=== PATIENT | male | born 1955 | race Caucasian/White ===

== ENCOUNTER 2021-10-11 19:49 | Inpatient (IN) | payer OTHER ==
[~2021-10-11] VITALS: Ht 195.6 cm; Wt 164.0 kg
[2021-10-11] MEDS ORDERED: ALBUTEROL SULF 2.5 MG/0.5ML(0.5%) NEB SOLN ONE (19:55)
[2021-10-11] MEDS ORDERED: IPRATROPIUM BROM 0.5 MG/2.5ML INH SOL ONE (19:55)
[2021-10-11] MEDS ORDERED: IPRATROPIUM BROM 0.5 MG/2.5ML INH SOL NEB ONE (20:00)
[2021-10-11] MEDS ORDERED: ASPirin 325 MG TAB PO ONE (20:00)
[2021-10-11] MEDS ORDERED: methylPREDNISolone SOD SUCC 125 MG/2 ML VL IV ONE (20:00)
[2021-10-11] MEDS ORDERED: ALBUTEROL SULF 2.5 MG/0.5ML(0.5%) NEB SOLN NEB ONE (20:00)
[2021-10-11] MEDS ORDERED: ACETAMINOPHEN 325 MG TAB PO ONE (20:00)
[2021-10-11 20:22] LABS: Hematocrit 36.7 % (41.0-53.0); Hemoglobin 11.7 g/dL (13.5-17.5); Mean Corpuscular Hemoglobin 28.2 pg (28.0-32.0); Mean Corpuscular Volume 88.1 fL (80.0-100.0); Red Blood Cells 4.17 10^6/uL (4.5-5.90); Red Cell Distribution Width 18.3 % (11.8-14.3); White Blood Cell 10.2 10^3/uL (4.4-10.8)
[2021-10-11 20:29] LABS: Basophils % (manual) 0 (0.0-2.0); Blast Cells 0; Metamyelocytes % 0; Myelocytes % 0; Promyelocytes % 0; Reactive Lymphocytes 0
[2021-10-11 20:38] LABS: Albumin 2.6 g/dL (3.4-5.0); BUN/Creatinine Ratio 11.7
[2021-10-11 20:45] LABS: Bilirubin, Total 1.3 mg/dL (0.2-1.0); Total Protein 7.1 g/dL (6.4-8.2)
[2021-10-11] MEDS: MAGNESIUM SULFATE 1GM/100ML 100 ML IV SCH ×2 (20:50→23:11)
[2021-10-11 21:08] LABS: Band Neutrophils % (manual) 25; Eosinophils % (manual) 1 (0-7); Lymphocytes % (manual) 5 (10.0-50.0); Monocytes % (manual) 2 (0-12)
[2021-10-11 21:26] VITALS: BP 150/112
[2021-10-11] MEDS ORDERED: DexAMETHasone 4 MG TAB PO ONE (22:15)
[2021-10-11 23:11] LABS: Urine Bacteria NONE SEEN /hpf (None Seen); Urine Blood Negative /uL (Negative); Urine Mucus FEW (None Seen); Urine Specific Gravity 1.011 (1.001-1.035); Urine WBC 1 /hpf (0 - 3)
[2021-10-11] MEDS ORDERED: IOHEXOL 350 MG/ML 100ML IJ ONE (23:29)
[2021-10-12] MEDS ORDERED: SODIUM CHLORIDE 0.9% 2,000 ML IV ONE (02:45)
[2021-10-12 05:45] VITALS: BP 100/70
[2021-10-12] MEDS ORDERED: ACETAMINOPHEN 500 MG TAB PO PRN (06:30)
[2021-10-12] MEDS ORDERED: REMDESIVIR PER PHARMACY 0 ML IV SCH (06:30)
[2021-10-12] MEDS ORDERED: ONDANSETRON HCL 4 MG/2 ML VIAL IV PRN (06:30)
[2021-10-12] MEDS ORDERED: DEXTROSE (50%) 50ML SYRG IV PRN (06:30)
[2021-10-12] MEDS ORDERED: DOCUSATE SOD 100 MG CAP PO PRN (06:30)
[2021-10-12] MEDS ORDERED: ASPirin 81 mg TAB PO ONE (06:45)
[2021-10-12] MEDS ORDERED: ENOXAPARIN SOD 100 MG/1 ML SYRINGE SC ONE (06:45)
[2021-10-12] MEDS ORDERED: CLOPIDOGREL 300 MG TAB PO ONE (06:45)
[2021-10-12] MEDS: ACCU-CHEK COMFORT CURVE STRIP VI SCH ×4 (07:00→22:00)
[2021-10-12] MEDS: InsuLIN REG 1unit/0.01ml Soln (100units/ml) SC SCH ×4 (07:00→23:27)
[2021-10-12 07:18] LABS: Basophils # (auto) 0 10 ^3/uL (0-0.2); Basophils % (auto) 0.1 % (0.0-2.0); Eosinophils # (auto) 0 10 ^3/uL (0-0.8); Hematocrit 33.5 % (41.0-53.0); Hemoglobin 10.5 g/dL (13.5-17.5); Lymphocytes # (auto) 0.3 10 ^3/uL (0.4-5.4); Lymphocytes % (auto) 2.3 % (10.0-50.0); Mean Corpuscular Hemoglobin 27.7 pg (28.0-32.0); Mean Corpuscular Hgb Conc. 31.4 g/dL (32.0-36.0); Mean Corpuscular Volume 88.3 fL (80.0-100.0); Monocytes # (auto) 0.3 10 ^3/uL (0-1.3); Monocytes % (auto) 2.1 % (0.0-12.0); Neutrophils # (auto) 12.9 10 ^3/uL (1.6-8.6); Neutrophils % (auto) 95.5 % (37.0-80.0); White Blood Cell 13.4 10^3/uL (4.4-10.8)
[2021-10-12 07:27] LABS: Albumin 2.3 g/dL (3.4-5.0); BUN/Creatinine Ratio 12.5; Magnesium 2.5 mg/dL (1.6-2.6); Potassium 4.3 mmol/L (3.5-5.1)
[2021-10-12 07:36] LABS: Bilirubin, Total 1.8 mg/dL (0.2-1.0); CRP High Sensitivity 10.7 mg/dL (< 0.3); Total Protein 6.6 g/dL (6.4-8.2)
[2021-10-12 07:38] LABS: Thyroid Stimulating Hormone 0.73 uIU/mL (0.358-3.74)
[2021-10-12 10:21] LABS: Cholesterol 101 mg/dL (< 200); Triglycerides 76 mg/dL (< 150)
[2021-10-12 10:23] LABS: HDL Cholesterol 34 mg/dL (40-59)
[2021-10-12] MEDS: CHOLECALCIFEROL (VITD3) 2,000 UNIT CAP/TAB PO SCH (10:57)
[2021-10-12] MEDS: ASPirin 81 mg TAB PO SCH (10:58)
[2021-10-12] MEDS: ZINC SULFATE 220mg CAP or TAB PO SCH (10:58)
[2021-10-12] MEDS: ASCORBIC ACID 1,000 MG TAB PO SCH (10:58)
[2021-10-12] MEDS: DexAMETHasone SOD PHOS 10MG/1ML VIAL INJ IV SCH (10:59)
[2021-10-12] MEDS: ENOXAPARIN SOD 60 MG/0.6 ML SYRINGE SC SCH ×2 (10:59→21:36)
[2021-10-12] MEDS ORDERED: REMDESIVIR 200 MG in NS 210ml LOADING DOSE ADULT IV ONE (15:00)
[2021-10-12 17:13] VITALS: BP 113/61
[2021-10-12] MEDS: ALBUTEROL SULF HFA 90MCG INH 200DOSE IN PRN (18:14)
[2021-10-12] MEDS: ATORVASTATIN 20 MG TAB PO SCH (21:36)
[2021-10-12 21:54] VITALS: BP 115/54
[2021-10-13 06:31] LABS: Albumin 2.2 g/dL (3.4-5.0); Potassium 4.5 mmol/L (3.5-5.1)
[2021-10-13 06:33] LABS: BUN/Creatinine Ratio 23.3
[2021-10-13 06:38] LABS: Bilirubin, Total 0.7 mg/dL (0.2-1.0); Total Protein 6.7 g/dL (6.4-8.2)
[2021-10-13 06:39] LABS: Basophils # (auto) 0 10 ^3/uL (0-0.2); Basophils % (auto) 0.1 % (0.0-2.0); Eosinophils # (auto) 0 10 ^3/uL (0-0.8); Hematocrit 31.9 % (41.0-53.0); Lymphocytes # (auto) 0.4 10 ^3/uL (0.4-5.4); Lymphocytes % (auto) 3.6 % (10.0-50.0); Mean Corpuscular Hemoglobin 27.7 pg (28.0-32.0); Mean Corpuscular Hgb Conc. 31.3 g/dL (32.0-36.0); Mean Corpuscular Volume 88.4 fL (80.0-100.0); Monocytes # (auto) 0.6 10 ^3/uL (0-1.3); Monocytes % (auto) 4.6 % (0.0-12.0); Neutrophils # (auto) 11.1 10 ^3/uL (1.6-8.6); Neutrophils % (auto) 91.7 % (37.0-80.0); Nucleated Red Blood Cells % 0.1 %; Red Blood Cells 3.61 10^6/uL (4.5-5.90); Red Cell Distribution Width 18.3 % (11.8-14.3); White Blood Cell 12.1 10^3/uL (4.4-10.8)
[2021-10-13] MEDS: ACCU-CHEK COMFORT CURVE STRIP VI SCH ×4 (06:41→21:39)
[2021-10-13] MEDS: InsuLIN REG 1unit/0.01ml Soln (100units/ml) SC SCH ×4 (06:41→21:38)
[2021-10-13 08:00] VITALS: BP 122/70
[2021-10-13 08:13] VITALS: BP 122/70
[2021-10-13] MEDS: ASCORBIC ACID 1,000 MG TAB PO SCH (10:07)
[2021-10-13] MEDS: CLOPIDOGREL BISULFATE 75 MG TAB PO SCH (10:07)
[2021-10-13] MEDS: DexAMETHasone SOD PHOS 10MG/1ML VIAL INJ IV SCH (10:07)
[2021-10-13] MEDS: ENOXAPARIN SOD 60 MG/0.6 ML SYRINGE SC SCH ×2 (10:07→22:15)
[2021-10-13] MEDS: CHOLECALCIFEROL (VITD3) 2,000 UNIT CAP/TAB PO SCH (10:08)
[2021-10-13] MEDS: ZINC SULFATE 220mg CAP or TAB PO SCH (10:08)
[2021-10-13] MEDS: ASPirin 81 mg TAB PO SCH (10:08)
[2021-10-13 11:30] VITALS: BP 127/56
[2021-10-13 15:44] VITALS: BP 144/49
[2021-10-13] MEDS: REMDESIVIR 100mg 100 MG in SODIUM CHL 0.9% 230 ML IV SCH (15:44)
[2021-10-13 22:00] VITALS: BP 133/80
[2021-10-13] MEDS: ATORVASTATIN 20 MG TAB PO SCH (22:15)
[2021-10-14 05:00] VITALS: BP 108/57
[2021-10-14 05:56] LABS: Hemoglobin 10.7 g/dL (13.5-17.5); Mean Corpuscular Hemoglobin 28.8 pg (28.0-32.0); Mean Corpuscular Hgb Conc. 32.3 g/dL (32.0-36.0); Mean Corpuscular Volume 89.1 fL (80.0-100.0); Red Cell Distribution Width 17.9 % (11.8-14.3); White Blood Cell 13.3 10^3/uL (4.4-10.8)
[2021-10-14 06:05] LABS: Basophils % (manual) 0 (0.0-2.0); Blast Cells 0; Eosinophils % (manual) 0 (0-7); Promyelocytes % 0; Reactive Lymphocytes 0
[2021-10-14] MEDS: InsuLIN REG 1unit/0.01ml Soln (100units/ml) SC SCH ×4 (06:08→22:02)
[2021-10-14] MEDS: ACCU-CHEK COMFORT CURVE STRIP VI SCH ×4 (06:13→21:55)
[2021-10-14 06:14] LABS: Albumin 2.2 g/dL (3.4-5.0); BUN/Creatinine Ratio 22.9; Calcium 8.2 mg/dL (8.5-10.1); Potassium 4.8 mmol/L (3.5-5.1)
[2021-10-14 06:17] LABS: Bilirubin, Total 1.4 mg/dL (0.2-1.0)
[2021-10-14 06:47] LABS: Band Neutrophils % (manual) 24; Lymphocytes % (manual) 2 (10.0-50.0); Metamyelocytes % 1; Monocytes % (manual) 4 (0-12); Myelocytes % 1
[2021-10-14] MEDS: ALBUTEROL SULF HFA 90MCG INH 200DOSE IN PRN (07:00)
[2021-10-14 09:00] VITALS: BP 130/72
[2021-10-14] MEDS ORDERED: LORazepam 0.5 MG TAB PO ONE (09:45)
[2021-10-14] MEDS: ASCORBIC ACID 1,000 MG TAB PO SCH (09:59)
[2021-10-14] MEDS: CHOLECALCIFEROL (VITD3) 2,000 UNIT CAP/TAB PO SCH (09:59)
[2021-10-14] MEDS: CLOPIDOGREL BISULFATE 75 MG TAB PO SCH (09:59)
[2021-10-14] MEDS: ASPirin 81 mg TAB PO SCH (09:59)
[2021-10-14] MEDS: ENOXAPARIN SOD 60 MG/0.6 ML SYRINGE SC SCH ×2 (09:59→21:55)
[2021-10-14] MEDS ORDERED: FUROSEMIDE 40 MG/4 ML VIAL IV SCH (10:00)
[2021-10-14] MEDS: DexAMETHasone SOD PHOS 10MG/1ML VIAL INJ IV SCH (10:00)
[2021-10-14] MEDS ORDERED: AZITHROMYCIN 500MG/ 250ML 250 ML IV SCH (10:00)
[2021-10-14] MEDS: ZINC SULFATE 220mg CAP or TAB PO SCH (10:09)
[2021-10-14 13:00] VITALS: BP 127/55
[2021-10-14] MEDS: REMDESIVIR 100mg 100 MG in SODIUM CHL 0.9% 230 ML IV SCH (15:56)
[2021-10-14 17:00] VITALS: BP 114/50
[2021-10-14] MEDS: ATORVASTATIN 20 MG TAB PO SCH (21:55)
[2021-10-14 22:00] VITALS: BP 102/61
[2021-10-14 22:00] LABS: LDL Cholesterol 49 mg/dL (< 100)
[2021-10-15] MEDS ORDERED: cefTRIAXone 1GM/50ML D5W 50 ML IV SCH (09:00)
== END 2021-10-15 04:26 | disposition short-term general hospital (02) | DRG 177 ==
LOC: EDBD 19:49 → ER 19:52 → TELE 10-12 06:21 → TELE-E-ADS 10-12 08:50 → TELE-EAST 10-12 16:50
PROVIDERS: ADMIT Internal Medicine; ATTEND Internal Medicine
PROC: 5A09357 Assistance with Respiratory Ventilation, Less than 24 Consecutive Hours, Continuous Positive Airway Pressure (ICD-10-PCS; principal; 2021-10-11)
PROC: XW033E5 Introduction of Remdesivir Anti-infective into Peripheral Vein, Percutaneous Approach, New Technology Group 5 (ICD-10-PCS; 2021-10-12)
DX: U07.1 COVID-19 (principal); J96.01 Acute respiratory failure with hypoxia; I21.4 Non-ST elevation (NSTEMI) myocardial infarction; J12.82 Pneumonia due to coronavirus disease 2019; I50.21 Acute systolic (congestive) heart failure; E66.2 Morbid (severe) obesity with alveolar hypoventilation; N17.9 Acute kidney failure, unspecified; L03.113 Cellulitis of right upper limb; Z68.41 Body mass index [BMI] 40.0-44.9, adult; I27.21 Secondary pulmonary arterial hypertension; D63.8 Anemia in other chronic diseases classified elsewhere; I27.20 Pulmonary hypertension, unspecified; E11.9 Type 2 diabetes mellitus without complications; I11.0 Hypertensive heart disease with heart failure; J45.909 Unspecified asthma, uncomplicated; Z78.9 Other specified health status; Z79.899 Other long term (current) drug therapy
CPT/HCPCS: 36415; 36600; 70450; 71045; 71275; 80053; 80061; 81001; 82728; 82805; 82962; 83036; 83605; 83615; 83735; 83880; 84443; 84484; 85007; 85025; 85027; 85379; 86141; 87040; 87077; 87186; 87426; 87804; 93005; 93306; 93970; 94640; 94644; 94660; 96365; 96375; 99291; G0378; J1100; J1815

== ENCOUNTER 2021-11-18 11:45 | Inpatient (IN) | payer OTHER ==
[~2021-11-18] VITALS: Ht 167.6 cm; Wt 96.0 kg
[2021-11-18 13:20] LABS: Basophils # (auto) 0 10 ^3/uL (0-0.2); Basophils % (auto) 0.9 % (0.0-2.0); Eosinophils # (auto) 0.1 10 ^3/uL (0-0.8); Eosinophils % (auto) 1.9 % (0.0-7.0); Hemoglobin 9.6 g/dL (13.5-17.5); Lymphocytes # (auto) 0.5 10 ^3/uL (0.4-5.4); Lymphocytes % (auto) 10.8 % (10.0-50.0); Mean Corpuscular Hemoglobin 27.6 pg (28.0-32.0); Mean Corpuscular Hgb Conc. 32.1 g/dL (32.0-36.0); Monocytes # (auto) 0.4 10 ^3/uL (0-1.3); Neutrophils # (auto) 3.3 10 ^3/uL (1.6-8.6); Neutrophils % (auto) 76.4 % (37.0-80.0); Nucleated Red Blood Cells % 0.2 %; Red Blood Cells 3.49 10^6/uL (4.5-5.90); Red Cell Distribution Width 18.7 % (11.8-14.3); White Blood Cell 4.3 10^3/uL (4.4-10.8)
[2021-11-18 13:53] LABS: Albumin 1.9 g/dL (3.4-5.0); BUN/Creatinine Ratio 9.6; Calcium 7.6 mg/dL (8.5-10.1); Potassium 3.8 mmol/L (3.5-5.1)
[2021-11-18 13:58] LABS: Total Protein 5.9 g/dL (6.4-8.2)
[2021-11-18] MEDS ORDERED: ASPirin 325 MG TAB PO ONE (14:15)
[2021-11-18] MEDS ORDERED: ACETAMINOPHEN 500 MG TAB PO PRN (16:45)
[2021-11-18] MEDS ORDERED: FUROSEMIDE 100 MG/10ML VIAL IV ONE (16:45)
[2021-11-18] MEDS ORDERED: REMDESIVIR PER PHARMACY 0 ML IV SCH (16:45)
[2021-11-18] MEDS ORDERED: DEXTROSE (50%) 50ML SYRG IV PRN (16:45)
[2021-11-18] MEDS: InsuLIN REG 1unit/0.01ml Soln (100units/ml) SC SCH ×2 (18:06→21:35)
[2021-11-18] MEDS: ACCU-CHEK COMFORT CURVE STRIP VI SCH ×2 (18:06→21:36)
[2021-11-18 18:13] LABS: Basophils # (auto) 0 10 ^3/uL (0-0.2); Basophils % (auto) 0.6 % (0.0-2.0); Eosinophils # (auto) 0.1 10 ^3/uL (0-0.8); Hematocrit 30.2 % (41.0-53.0); Hemoglobin 9.7 g/dL (13.5-17.5); Lymphocytes # (auto) 0.6 10 ^3/uL (0.4-5.4); Lymphocytes % (auto) 16.1 % (10.0-50.0); Mean Corpuscular Hemoglobin 27.5 pg (28.0-32.0); Mean Corpuscular Hgb Conc. 32.1 g/dL (32.0-36.0); Mean Corpuscular Volume 85.6 fL (80.0-100.0); Monocytes # (auto) 0.5 10 ^3/uL (0-1.3); Monocytes % (auto) 11.5 % (0.0-12.0); Neutrophils # (auto) 2.8 10 ^3/uL (1.6-8.6); Neutrophils % (auto) 69.8 % (37.0-80.0); Nucleated Red Blood Cells % 0.4 %; Red Blood Cells 3.52 10^6/uL (4.5-5.90); Red Cell Distribution Width 19.3 % (11.8-14.3)
[2021-11-18 18:30] LABS: Albumin 1.9 g/dL (3.4-5.0); BUN/Creatinine Ratio 11.4; Calcium 7.7 mg/dL (8.5-10.1); Magnesium 1.9 mg/dL (1.6-2.6); Potassium 3.8 mmol/L (3.5-5.1)
[2021-11-18 18:39] LABS: Bilirubin, Total 0.9 mg/dL (0.2-1.0); CRP High Sensitivity 6.36 mg/dL (< 0.3); Total Protein 5.8 g/dL (6.4-8.2)
[2021-11-18 19:04] VITALS: BP 105/36
[2021-11-18 19:10] LABS: Urine Bacteria NONE SEEN /hpf (None Seen); Urine Blood Negative /uL (Negative); Urine Mucus FEW (None Seen); Urine Specific Gravity 1.008 (1.001-1.035); Urine WBC 1 /hpf (0 - 3)
[2021-11-18 19:28] LABS: Thyroid Stimulating Hormone 1.47 uIU/mL (0.358-3.74)
[2021-11-18] MEDS ORDERED: HEPARIN SODIUM (PORCINE) 5000 UNITS/ML 1ML VIAL IV ONE (19:30)
[2021-11-18] MEDS ORDERED: MORPHINE SULFATE INJECTION 2 MG/ML SYRG IV ONE (19:30)
[2021-11-18] MEDS ORDERED: REMDESIVIR 200 MG in NS 210ml LOADING DOSE ADULT IV ONE (20:00)
[2021-11-18 21:50] VITALS: BP 107/59
[2021-11-18] MEDS: BUDESONIDE (INHALATION) 180 MCG IH IN SCH (21:57)
[2021-11-18 22:00] VITALS: BP 112/50
[2021-11-18] MEDS ORDERED: ENOXAPARIN SOD 60 MG/0.6 ML SYRINGE SC SCH (22:00)
[2021-11-18 22:40] VITALS: BP 94/43
[2021-11-18] MEDS: ENOXAPARIN SOD 60 MG/0.6 ML SYRINGE SC SCH (23:16)
[2021-11-19] MEDS ORDERED: TRAZ50TA2 PO (03:09)
[2021-11-19] MEDS ORDERED: ALBU2TAB4 PO (03:09)
[2021-11-19] MEDS ORDERED: PROP60CA34 PO (03:09)
[2021-11-19] MEDS ORDERED: CICL160A2 IN (03:09)
[2021-11-19] MEDS ORDERED: FOLI1TAB6 PO (03:09)
[2021-11-19] MEDS ORDERED: DIPH25CA29 PO (03:09)
[2021-11-19] MEDS ORDERED: BUDE0.253 IN (03:09)
[2021-11-19] MEDS ORDERED: PANT40TA2 PO (03:09)
[2021-11-19] MEDS ORDERED: SIME80CH6 PO (03:09)
[2021-11-19 05:00] VITALS: BP 111/73
[2021-11-19 05:30] LABS: Albumin 1.9 g/dL (3.4-5.0); Potassium 3.6 mmol/L (3.5-5.1)
[2021-11-19 05:34] LABS: BUN/Creatinine Ratio 10.3; Calcium 7.9 mg/dL (8.5-10.1)
[2021-11-19 05:42] LABS: Total Protein 5.7 g/dL (6.4-8.2)
[2021-11-19] MEDS: ACCU-CHEK COMFORT CURVE STRIP VI SCH ×4 (06:22→22:36)
[2021-11-19] MEDS: InsuLIN REG 1unit/0.01ml Soln (100units/ml) SC SCH ×4 (06:22→22:00)
[2021-11-19] MEDS: ENOXAPARIN SOD 60 MG/0.6 ML SYRINGE SC SCH (08:53)
[2021-11-19] MEDS: DexAMETHasone SOD PHOS 10MG/1ML VIAL INJ IV SCH (08:54)
[2021-11-19] MEDS: AZITHROMYCIN 500MG/ 250ML 250 ML IV SCH (08:54)
[2021-11-19 09:00] VITALS: BP 127/61
[2021-11-19] MEDS: BUDESONIDE (INHALATION) 180 MCG IH IN SCH ×2 (09:43→22:00)
[2021-11-19] MEDS: ALBUTEROL SULF HFA 90MCG INH 200DOSE IN PRN ×2 (09:43→22:34)
[2021-11-19] MEDS ORDERED: ENOXAPARIN SOD 40 MG/0.4 ML SYRINGE SC SCH (10:00)
[2021-11-19] MEDS ORDERED: FUROSEMIDE 40 MG/4 ML VIAL IV SCH (10:00)
[2021-11-19] MEDS ORDERED: PANTOPRAZOLE 40 MG TAB PO ONE (11:30)
[2021-11-19] MEDS: ZINC SULFATE 220mg CAP or TAB PO SCH (11:50)
[2021-11-19] MEDS: CHOLECALCIFEROL (VITD3) 2,000 UNIT CAP/TAB PO SCH (11:50)
[2021-11-19] MEDS: ASCORBIC ACID 1,000 MG TAB PO SCH (11:50)
[2021-11-19 13:00] VITALS: BP 117/51
[2021-11-19] MEDS: REMDESIVIR 100mg 100 MG in SODIUM CHL 0.9% 230 ML IV SCH (15:34)
[2021-11-19 22:00] VITALS: BP 117/55
[2021-11-19] MEDS: ENOXAPARIN SOD 40 MG/0.4 ML SYRINGE SC SCH (22:36)
[2021-11-19] MEDS ORDERED: TEMAZEPAM 15 MG CAP PO ONE (23:00)
[2021-11-20 05:00] VITALS: BP 127/62
[2021-11-20 05:53] LABS: Basophils # (auto) 0 10 ^3/uL (0-0.2); Basophils % (auto) 0.3 % (0.0-2.0); Eosinophils # (auto) 0 10 ^3/uL (0-0.8); Eosinophils % (auto) 0.3 % (0.0-7.0); Hematocrit 28.6 % (41.0-53.0); Hemoglobin 9.4 g/dL (13.5-17.5); Lymphocytes # (auto) 0.6 10 ^3/uL (0.4-5.4); Lymphocytes % (auto) 18.7 % (10.0-50.0); Mean Corpuscular Hemoglobin 28.1 pg (28.0-32.0); Mean Corpuscular Hgb Conc. 32.7 g/dL (32.0-36.0); Mean Corpuscular Volume 85.8 fL (80.0-100.0); Monocytes # (auto) 0.3 10 ^3/uL (0-1.3); Monocytes % (auto) 9.1 % (0.0-12.0); Neutrophils # (auto) 2.4 10 ^3/uL (1.6-8.6); Neutrophils % (auto) 71.6 % (37.0-80.0); Red Blood Cells 3.33 10^6/uL (4.5-5.90); Red Cell Distribution Width 18.6 % (11.8-14.3); White Blood Cell 3.4 10^3/uL (4.4-10.8)
[2021-11-20] MEDS: InsuLIN REG 1unit/0.01ml Soln (100units/ml) SC SCH ×4 (06:19→21:50)
[2021-11-20] MEDS: ACCU-CHEK COMFORT CURVE STRIP VI SCH ×4 (06:19→21:50)
[2021-11-20 06:24] LABS: Potassium 3.7 mmol/L (3.5-5.1)
[2021-11-20 06:45] LABS: BUN/Creatinine Ratio 16.1
[2021-11-20] MEDS: ALBUTEROL SULF HFA 90MCG INH 200DOSE IN PRN ×2 (06:50→19:41)
[2021-11-20] MEDS: BUDESONIDE (INHALATION) 180 MCG IH IN SCH ×2 (06:51→19:41)
[2021-11-20 09:00] VITALS: BP 123/63
[2021-11-20] MEDS ORDERED: FUROSEMIDE 20 MG TAB PO ONE (10:30)
[2021-11-20] MEDS ORDERED: POTASSIUM CHL 20 Meq TABLET PO ONE (10:30)
[2021-11-20] MEDS ORDERED: ceFAZolin 1GM/50ML 50 ML IV ONE (10:30)
[2021-11-20] MEDS: DexAMETHasone SOD PHOS 10MG/1ML VIAL INJ IV SCH (11:40)
[2021-11-20] MEDS: ZINC SULFATE 220mg CAP or TAB PO SCH (11:41)
[2021-11-20] MEDS: ASCORBIC ACID 1,000 MG TAB PO SCH (11:41)
[2021-11-20] MEDS: AZITHROMYCIN 500MG/ 250ML 250 ML IV SCH (11:41)
[2021-11-20] MEDS: CHOLECALCIFEROL (VITD3) 2,000 UNIT CAP/TAB PO SCH (11:41)
[2021-11-20] MEDS: PANTOPRAZOLE 40 MG TAB PO SCH (11:41)
[2021-11-20] MEDS: ENOXAPARIN SOD 40 MG/0.4 ML SYRINGE SC SCH ×2 (11:42→21:57)
[2021-11-20 12:46] VITALS: BP 134/58
[2021-11-20 16:36] VITALS: BP 100/55
[2021-11-20] MEDS: REMDESIVIR 100mg 100 MG in SODIUM CHL 0.9% 230 ML IV SCH (17:29)
[2021-11-20] MEDS: ceFAZolin 1GM/50ML 50 ML IV SCH (18:31)
[2021-11-20 22:00] VITALS: BP 108/43
[2021-11-20] MEDS ORDERED: TEMAZEPAM 15 MG CAP PO ONE (23:30)
[2021-11-21] MEDS: ceFAZolin 1GM/50ML 50 ML IV SCH ×3 (02:05→18:26)
[2021-11-21 05:00] VITALS: BP 110/59
[2021-11-21] MEDS: InsuLIN REG 1unit/0.01ml Soln (100units/ml) SC SCH ×4 (06:23→22:00)
[2021-11-21] MEDS: ACCU-CHEK COMFORT CURVE STRIP VI SCH ×4 (06:23→22:00)
[2021-11-21] MEDS: ALBUTEROL SULF HFA 90MCG INH 200DOSE IN PRN ×2 (06:34→21:35)
[2021-11-21] MEDS: DexAMETHasone SOD PHOS 10MG/1ML VIAL INJ IV SCH (08:40)
[2021-11-21] MEDS: PANTOPRAZOLE 40 MG TAB PO SCH (08:41)
[2021-11-21] MEDS: POTASSIUM CHL 20 Meq TABLET PO SCH (08:41)
[2021-11-21] MEDS: ENOXAPARIN SOD 40 MG/0.4 ML SYRINGE SC SCH ×2 (08:41→23:58)
[2021-11-21] MEDS: ASCORBIC ACID 1,000 MG TAB PO SCH (08:41)
[2021-11-21] MEDS: ZINC SULFATE 220mg CAP or TAB PO SCH (08:41)
[2021-11-21] MEDS: CHOLECALCIFEROL (VITD3) 2,000 UNIT CAP/TAB PO SCH (08:41)
[2021-11-21] MEDS: FUROSEMIDE 20 MG TAB PO SCH (08:46)
[2021-11-21 09:00] VITALS: BP 127/65
[2021-11-21] MEDS: BUDESONIDE (INHALATION) 180 MCG IH IN SCH ×2 (09:52→21:35)
[2021-11-21] MEDS: AZITHROMYCIN 500MG/ 250ML 250 ML IV SCH (10:40)
[2021-11-21 12:53] VITALS: BP 136/66
[2021-11-21] MEDS: REMDESIVIR 100mg 100 MG in SODIUM CHL 0.9% 230 ML IV SCH (15:18)
[2021-11-21 17:00] VITALS: BP 128/66
[2021-11-21 22:00] VITALS: BP 127/59
[2021-11-21] MEDS: traZODone HCL 50 MG TAB PO PRN (23:58)
[2021-11-22 00:57] VITALS: BP 118/53
[2021-11-22] MEDS: ceFAZolin 1GM/50ML 50 ML IV SCH ×3 (02:10→19:36)
[2021-11-22 05:00] VITALS: BP 130/57
[2021-11-22] MEDS: InsuLIN REG 1unit/0.01ml Soln (100units/ml) SC SCH ×4 (07:00→22:00)
[2021-11-22] MEDS: ACCU-CHEK COMFORT CURVE STRIP VI SCH ×3 (07:00→16:54)
[2021-11-22 08:49] VITALS: BP 124/64
[2021-11-22] MEDS: AZITHROMYCIN 500MG/ 250ML 250 ML IV SCH (09:13)
[2021-11-22] MEDS: DexAMETHasone SOD PHOS 10MG/1ML VIAL INJ IV SCH (09:13)
[2021-11-22] MEDS: ENOXAPARIN SOD 40 MG/0.4 ML SYRINGE SC SCH (09:14)
[2021-11-22] MEDS: ZINC SULFATE 220mg CAP or TAB PO SCH (09:14)
[2021-11-22] MEDS: CHOLECALCIFEROL (VITD3) 2,000 UNIT CAP/TAB PO SCH (09:14)
[2021-11-22] MEDS: ASCORBIC ACID 1,000 MG TAB PO SCH (09:14)
[2021-11-22] MEDS: PANTOPRAZOLE 40 MG TAB PO SCH (09:14)
[2021-11-22] MEDS: FUROSEMIDE 20 MG TAB PO SCH (09:15)
[2021-11-22] MEDS: POTASSIUM CHL 20 Meq TABLET PO SCH (09:15)
[2021-11-22] MEDS ORDERED: PROMETHAZINE W/CODEINE 5 ML ORAL SYRUP PO PRN (10:15)
[2021-11-22] MEDS: ALBUTEROL SULF HFA 90MCG INH 200DOSE IN PRN (10:18)
[2021-11-22] MEDS: BUDESONIDE (INHALATION) 180 MCG IH IN SCH ×2 (10:18→19:06)
[2021-11-22 11:14] LABS: Albumin 2.3 g/dL (3.4-5.0); Calcium 8.1 mg/dL (8.5-10.1); Potassium 3.7 mmol/L (3.5-5.1)
[2021-11-22 11:18] LABS: BUN/Creatinine Ratio 14.6; Bilirubin, Total 0.4 mg/dL (0.2-1.0); Total Protein 6.4 g/dL (6.4-8.2)
[2021-11-22] MEDS ORDERED: LACTULOSE 20Gm/30ML SOLN PO ONE (11:30)
[2021-11-22 13:00] VITALS: BP 122/59
[2021-11-22] MEDS: REMDESIVIR 100mg 100 MG in SODIUM CHL 0.9% 230 ML IV SCH (15:19)
[2021-11-22 17:31] VITALS: BP 137/63
[2021-11-22 21:55] VITALS: BP 136/70
[2021-11-22] MEDS ORDERED: traZODone HCL 50 MG TAB PO SCH (22:00)
[2021-11-23] MEDS: ENOXAPARIN SOD 40 MG/0.4 ML SYRINGE SC SCH ×3 (00:28→22:25)
[2021-11-23] MEDS: traZODone HCL 50 MG TAB PO PRN (00:28)
[2021-11-23] MEDS: ACCU-CHEK COMFORT CURVE STRIP VI SCH ×5 (00:28→22:25)
[2021-11-23] MEDS: ceFAZolin 1GM/50ML 50 ML IV SCH ×2 (02:21→10:49)
[2021-11-23 04:55] VITALS: BP 130/67
[2021-11-23] MEDS: InsuLIN REG 1unit/0.01ml Soln (100units/ml) SC SCH ×4 (06:37→22:00)
[2021-11-23 09:00] VITALS: BP 125/35
[2021-11-23] MEDS: ALBUTEROL SULF HFA 90MCG INH 200DOSE IN PRN ×2 (09:43→19:40)
[2021-11-23] MEDS: BUDESONIDE (INHALATION) 180 MCG IH IN SCH ×2 (09:43→19:40)
[2021-11-23] MEDS: DexAMETHasone SOD PHOS 10MG/1ML VIAL INJ IV SCH (10:49)
[2021-11-23] MEDS: AZITHROMYCIN 500MG/ 250ML 250 ML IV SCH (10:49)
[2021-11-23] MEDS: ZINC SULFATE 220mg CAP or TAB PO SCH (10:49)
[2021-11-23] MEDS: CHOLECALCIFEROL (VITD3) 2,000 UNIT CAP/TAB PO SCH (10:50)
[2021-11-23] MEDS: PANTOPRAZOLE 40 MG TAB PO SCH (10:50)
[2021-11-23] MEDS: POTASSIUM CHL 20 Meq TABLET PO SCH (10:50)
[2021-11-23] MEDS: ASCORBIC ACID 1,000 MG TAB PO SCH (10:50)
[2021-11-23] MEDS: FUROSEMIDE 20 MG TAB PO SCH (10:51)
[2021-11-23 12:54] VITALS: BP 116/49
[2021-11-23] MEDS: CEPHALEXIN 250 MG CAP PO SCH ×2 (14:54→22:25)
[2021-11-23 17:00] VITALS: BP 124/60
[2021-11-23 22:00] VITALS: BP 107/53
[2021-11-24 05:00] VITALS: BP 122/53
[2021-11-24] MEDS: CEPHALEXIN 250 MG CAP PO SCH ×3 (06:16→22:09)
[2021-11-24] MEDS: InsuLIN REG 1unit/0.01ml Soln (100units/ml) SC SCH ×4 (06:17→22:11)
[2021-11-24] MEDS: ACCU-CHEK COMFORT CURVE STRIP VI SCH ×4 (06:17→22:09)
[2021-11-24] MEDS: BUDESONIDE (INHALATION) 180 MCG IH IN SCH ×2 (07:30→18:44)
[2021-11-24] MEDS: ALBUTEROL SULF HFA 90MCG INH 200DOSE IN PRN ×2 (08:27→18:44)
[2021-11-24 08:51] VITALS: BP 139/58
[2021-11-24] MEDS: ZINC SULFATE 220mg CAP or TAB PO SCH (09:21)
[2021-11-24] MEDS: POTASSIUM CHL 20 Meq TABLET PO SCH (09:22)
[2021-11-24] MEDS: FUROSEMIDE 20 MG TAB PO SCH (09:22)
[2021-11-24] MEDS: DexAMETHasone 4 MG TAB PO SCH (09:22)
[2021-11-24] MEDS: ASCORBIC ACID 1,000 MG TAB PO SCH (09:23)
[2021-11-24] MEDS: CHOLECALCIFEROL (VITD3) 2,000 UNIT CAP/TAB PO SCH (09:23)
[2021-11-24] MEDS: ENOXAPARIN SOD 40 MG/0.4 ML SYRINGE SC SCH ×2 (09:23→22:09)
[2021-11-24] MEDS: PANTOPRAZOLE 40 MG TAB PO SCH (09:23)
[2021-11-24 13:00] VITALS: BP 137/75
[2021-11-24 17:27] VITALS: BP 146/76
[2021-11-24 21:22] VITALS: BP 123/67
[2021-11-24] MEDS: traZODone HCL 50 MG TAB PO PRN (22:10)
[2021-11-24 23:36] VITALS: BP 123/67
[2021-11-25] MEDS: ACCU-CHEK COMFORT CURVE STRIP VI SCH (06:15)
[2021-11-25] MEDS: CEPHALEXIN 250 MG CAP PO SCH ×3 (06:15→22:20)
[2021-11-25] MEDS: InsuLIN REG 1unit/0.01ml Soln (100units/ml) SC SCH (06:15)
[2021-11-25] MEDS: BUDESONIDE (INHALATION) 180 MCG IH IN SCH ×2 (06:33→21:40)
[2021-11-25 08:00] VITALS: BP 157/90
[2021-11-25 08:48] VITALS: BP 122/67
[2021-11-25] MEDS: ASCORBIC ACID 1,000 MG TAB PO SCH (10:07)
[2021-11-25] MEDS: PANTOPRAZOLE 40 MG TAB PO SCH (10:07)
[2021-11-25] MEDS: ZINC SULFATE 220mg CAP or TAB PO SCH (10:07)
[2021-11-25] MEDS: POTASSIUM CHL 20 Meq TABLET PO SCH (10:07)
[2021-11-25] MEDS: DexAMETHasone 4 MG TAB PO SCH (10:07)
[2021-11-25] MEDS: CHOLECALCIFEROL (VITD3) 2,000 UNIT CAP/TAB PO SCH (10:08)
[2021-11-25] MEDS: ENOXAPARIN SOD 40 MG/0.4 ML SYRINGE SC SCH ×2 (10:08→22:20)
[2021-11-25] MEDS: FUROSEMIDE 20 MG TAB PO SCH (10:09)
[2021-11-25 13:25] VITALS: BP 144/59
[2021-11-25 16:30] VITALS: BP 134/56
[2021-11-25 20:00] VITALS: BP 157/90
[2021-11-25] MEDS: ALBUTEROL SULF HFA 90MCG INH 200DOSE IN PRN (21:40)
[2021-11-25 22:00] VITALS: BP 144/70
[2021-11-25] MEDS: traZODone HCL 50 MG TAB PO PRN (23:07)
[2021-11-26 05:00] VITALS: BP 124/48
[2021-11-26] MEDS: CEPHALEXIN 250 MG CAP PO SCH ×3 (06:30→21:36)
[2021-11-26] MEDS: ALBUTEROL SULF HFA 90MCG INH 200DOSE IN PRN ×2 (06:39→19:27)
[2021-11-26] MEDS: BUDESONIDE (INHALATION) 180 MCG IH IN SCH ×2 (06:39→19:27)
[2021-11-26 08:00] VITALS: BP 119/64
[2021-11-26] MEDS ORDERED: DexAMETHasone 4 MG TAB PO SCH (10:00)
[2021-11-26] MEDS: ZINC SULFATE 220mg CAP or TAB PO SCH (10:14)
[2021-11-26] MEDS: PANTOPRAZOLE 40 MG TAB PO SCH (10:15)
[2021-11-26] MEDS: POTASSIUM CHL 20 Meq TABLET PO SCH (10:15)
[2021-11-26] MEDS: FUROSEMIDE 20 MG TAB PO SCH (10:15)
[2021-11-26] MEDS: ASCORBIC ACID 1,000 MG TAB PO SCH (10:16)
[2021-11-26] MEDS: CHOLECALCIFEROL (VITD3) 2,000 UNIT CAP/TAB PO SCH (10:16)
[2021-11-26] MEDS: ENOXAPARIN SOD 40 MG/0.4 ML SYRINGE SC SCH ×2 (10:16→21:36)
[2021-11-26 12:00] VITALS: BP 119/83
[2021-11-26 16:00] VITALS: BP 128/69
[2021-11-26 20:00] VITALS: BP 157/90
[2021-11-26 22:00] VITALS: BP 128/69
[2021-11-26] MEDS: traZODone HCL 50 MG TAB PO PRN (22:51)
[2021-11-27] VITALS (9 sets, daily range): BP systolic 103–157; BP diastolic 45–90
[2021-11-27] MEDS: BUDESONIDE (INHALATION) 180 MCG IH IN SCH (05:44)
[2021-11-27] MEDS: CEPHALEXIN 250 MG CAP PO SCH ×3 (06:25→21:25)
[2021-11-27] MEDS: ENOXAPARIN SOD 40 MG/0.4 ML SYRINGE SC SCH ×2 (10:30→21:25)
[2021-11-27] MEDS: ASCORBIC ACID 1,000 MG TAB PO SCH (10:30)
[2021-11-27] MEDS: FUROSEMIDE 20 MG TAB PO SCH (10:30)
[2021-11-27] MEDS: PANTOPRAZOLE 40 MG TAB PO SCH (10:30)
[2021-11-27] MEDS: ZINC SULFATE 220mg CAP or TAB PO SCH (10:30)
[2021-11-27] MEDS: CHOLECALCIFEROL (VITD3) 2,000 UNIT CAP/TAB PO SCH (10:30)
[2021-11-27] MEDS ORDERED: POTASSIUM EFFERVESENT TAB 25 MEQ PO ONE (11:00)
[2021-11-27] MEDS: traZODone HCL 50 MG TAB PO PRN (22:20)
[2021-11-28 05:00] VITALS: BP 108/39
[2021-11-28] MEDS: CEPHALEXIN 250 MG CAP PO SCH (06:21)
[2021-11-28] MEDS: BUDESONIDE (INHALATION) 180 MCG IH IN SCH ×3 (08:22→18:39)
[2021-11-28 08:24] VITALS: BP 133/81
[2021-11-28] MEDS: CHOLECALCIFEROL (VITD3) 2,000 UNIT CAP/TAB PO SCH (09:47)
[2021-11-28] MEDS: PANTOPRAZOLE 40 MG TAB PO SCH (09:47)
[2021-11-28] MEDS: ZINC SULFATE 220mg CAP or TAB PO SCH (09:47)
[2021-11-28] MEDS: ASCORBIC ACID 1,000 MG TAB PO SCH (09:48)
[2021-11-28] MEDS: FUROSEMIDE 20 MG TAB PO SCH (09:48)
[2021-11-28] MEDS: ENOXAPARIN SOD 40 MG/0.4 ML SYRINGE SC SCH ×2 (09:48→21:57)
[2021-11-28] MEDS: POTASSIUM EFFERVESENT TAB 25 MEQ PO SCH (09:49)
[2021-11-28] MEDS: ALBUTEROL SULF HFA 90MCG INH 200DOSE IN PRN ×2 (10:43→18:39)
[2021-11-28 13:03] VITALS: BP 111/60
[2021-11-28 17:00] VITALS: BP 108/64
[2021-11-28 20:00] VITALS: BP 157/90
[2021-11-28 22:00] VITALS: BP 147/75
[2021-11-28] MEDS: traZODone HCL 50 MG TAB PO PRN (23:01)
[2021-11-29 05:00] VITALS: BP 128/71
[2021-11-29] MEDS: ALBUTEROL SULF HFA 90MCG INH 200DOSE IN PRN (06:57)
[2021-11-29] MEDS: BUDESONIDE (INHALATION) 180 MCG IH IN SCH (06:57)
[2021-11-29 07:58] VITALS: BP 114/49
[2021-11-29] MEDS: POTASSIUM EFFERVESENT TAB 25 MEQ PO SCH (09:38)
[2021-11-29] MEDS: PANTOPRAZOLE 40 MG TAB PO SCH (09:39)
[2021-11-29] MEDS: FUROSEMIDE 20 MG TAB PO SCH (09:39)
[2021-11-29] MEDS: CHOLECALCIFEROL (VITD3) 2,000 UNIT CAP/TAB PO SCH (09:39)
[2021-11-29] MEDS: ZINC SULFATE 220mg CAP or TAB PO SCH (09:40)
[2021-11-29] MEDS: ENOXAPARIN SOD 40 MG/0.4 ML SYRINGE SC SCH ×2 (09:40→22:14)
[2021-11-29] MEDS: ASCORBIC ACID 1,000 MG TAB PO SCH (09:40)
[2021-11-29 12:33] VITALS: BP 116/65
[2021-11-29 16:19] VITALS: BP 123/61
[2021-11-29 20:00] VITALS: BP 157/90
[2021-11-29 21:33] VITALS: BP 128/52
[2021-11-29] MEDS: traZODone HCL 50 MG TAB PO PRN (23:22)
[2021-11-30] VITALS (7 sets, daily range): BP systolic 114–170; BP diastolic 46–92
[2021-11-30] MEDS: BUDESONIDE (INHALATION) 180 MCG IH IN SCH ×2 (06:22→21:47)
[2021-11-30] MEDS: ENOXAPARIN SOD 40 MG/0.4 ML SYRINGE SC SCH ×2 (10:39→21:29)
[2021-11-30] MEDS: POTASSIUM EFFERVESENT TAB 25 MEQ PO SCH (10:39)
[2021-11-30] MEDS: CHOLECALCIFEROL (VITD3) 2,000 UNIT CAP/TAB PO SCH (10:40)
[2021-11-30] MEDS: ASCORBIC ACID 1,000 MG TAB PO SCH (10:40)
[2021-11-30] MEDS: PANTOPRAZOLE 40 MG TAB PO SCH (10:40)
[2021-11-30] MEDS: ZINC SULFATE 220mg CAP or TAB PO SCH (10:40)
[2021-11-30] MEDS: FUROSEMIDE 20 MG TAB PO SCH (10:41)
[2021-11-30] MEDS: ALBUTEROL SULF HFA 90MCG INH 200DOSE IN PRN (21:47)
[2021-11-30] MEDS: traZODone HCL 50 MG TAB PO PRN (22:47)
[2021-12-01 05:00] VITALS: BP 118/52
[2021-12-01] MEDS: BUDESONIDE (INHALATION) 180 MCG IH IN SCH ×2 (07:00→19:44)
[2021-12-01 08:30] VITALS: BP 123/66
[2021-12-01] MEDS: POTASSIUM EFFERVESENT TAB 25 MEQ PO SCH (09:52)
[2021-12-01] MEDS: CHOLECALCIFEROL (VITD3) 2,000 UNIT CAP/TAB PO SCH (09:52)
[2021-12-01] MEDS: FUROSEMIDE 20 MG TAB PO SCH (09:52)
[2021-12-01] MEDS: PANTOPRAZOLE 40 MG TAB PO SCH (09:52)
[2021-12-01] MEDS: ZINC SULFATE 220mg CAP or TAB PO SCH (09:52)
[2021-12-01] MEDS: ASCORBIC ACID 1,000 MG TAB PO SCH (09:53)
[2021-12-01 12:35] VITALS: BP 140/68
[2021-12-01 16:39] VITALS: BP 135/75
[2021-12-01] MEDS: ALBUTEROL SULF HFA 90MCG INH 200DOSE IN PRN (19:44)
[2021-12-01 20:00] VITALS: BP 157/90
[2021-12-01 22:00] VITALS: BP 111/59
[2021-12-01] MEDS: traZODone HCL 50 MG TAB PO PRN (23:25)
[2021-12-02 04:53] VITALS: BP 110/56
[2021-12-02 08:30] VITALS: BP 109/49
[2021-12-02] MEDS: POTASSIUM EFFERVESENT TAB 25 MEQ PO SCH (09:47)
[2021-12-02] MEDS: PANTOPRAZOLE 40 MG TAB PO SCH (09:48)
[2021-12-02] MEDS: CHOLECALCIFEROL (VITD3) 2,000 UNIT CAP/TAB PO SCH (09:48)
[2021-12-02] MEDS: ZINC SULFATE 220mg CAP or TAB PO SCH (09:48)
[2021-12-02] MEDS: FUROSEMIDE 20 MG TAB PO SCH (09:48)
[2021-12-02] MEDS: ASCORBIC ACID 1,000 MG TAB PO SCH (09:49)
[2021-12-02 11:30] VITALS: BP 138/74
[2021-12-02 12:34] VITALS: BP 138/74
[2021-12-02] MEDS: BUDESONIDE (INHALATION) 180 MCG IH IN SCH (13:27)
== END 2021-12-02 14:00 | disposition home or self-care (01) | DRG 871 ==
LOC: ER 11:45 → EDBD 11:45 → EDUNIT# 11:45 → TELE 16:54 → TELE-EAST 19:02 → EAST 11-26 05:35
PROVIDERS: ADMIT Registered Nurse; ATTEND Internal Medicine
PROC: XW033E5 Introduction of Remdesivir Anti-infective into Peripheral Vein, Percutaneous Approach, New Technology Group 5 (ICD-10-PCS; principal; 2021-11-18)
DX: A41.89 Other specified sepsis (principal); U07.1 COVID-19; J12.82 Pneumonia due to coronavirus disease 2019; I50.41 Acute combined systolic (congestive) and diastolic (congestive) heart failure; J96.01 Acute respiratory failure with hypoxia; E87.3 Alkalosis; L03.116 Cellulitis of left lower limb; J44.0 Chronic obstructive pulmonary disease with (acute) lower respiratory infection; E66.01 Morbid (severe) obesity due to excess calories; K21.9 Gastro-esophageal reflux disease without esophagitis; D89.839 Cytokine release syndrome, grade unspecified; G43.909 Migraine, unspecified, not intractable, without status migrainosus; I11.0 Hypertensive heart disease with heart failure; E11.9 Type 2 diabetes mellitus without complications; Z83.3 Family history of diabetes mellitus; Z68.34 Body mass index [BMI] 34.0-34.9, adult; Z88.0 Allergy status to penicillin
CPT/HCPCS: 36415; 36600; 71045; 80048; 80053; 81001; 82306; 82728; 82805; 82962; 83036; 83605; 83615; 83735; 83880; 84443; 84484; 85025; 85379; 86141; 87070; 87081; 87205; 93005; 93971; 94640; 96365; 96375; 97110; 97116; 97163; 97530; G0378; J0690; J1100; J1815